=== PATIENT | male | born 1960 | race Native Hawaiian/Other Pacific Islander ===

== ENCOUNTER 2018-04-01 23:14 | Outpatient (CLI) | payer OTHER ==
[2018-04-01] MEDS ORDERED: ISOSORB DIN30 MG PO (23:55)
[2018-04-01] MEDS ORDERED: LIPITOR80 MG PO (23:56)
[2018-04-01] MEDS ORDERED: METF500T PO (23:57)
[2018-04-01] MEDS ORDERED: DOCU SOFT100 MG PO (23:57)
[2018-04-01] MEDS ORDERED: GLIM2TAB PO (23:58)
[2018-04-01] MEDS ORDERED: MICROZIDE12.5 MG PO (23:59)
[2018-04-01] MEDS ORDERED: NITROSTAT0.4 MG SL (23:59)
[2018-04-02] MEDS ORDERED: CLOP75TA2 PO
[2018-04-02] MEDS ORDERED: TAMS0.4C PO (00:01)
[2018-04-02] MEDS ORDERED: HEARTBURN150 MG PO (00:01)
[2018-04-02] MEDS ORDERED: HYDR25CA25 PO (00:02)
[2018-04-02] MEDS ORDERED: TOPAMAX50 MG PO (00:03)
[2018-04-02] MEDS ORDERED: ASPIRIN 81 LOW81 MG PO (00:03)
[2018-04-02] MEDS ORDERED: SYMBICORT1 AE1 INH (00:04)
[2018-04-02] MEDS ORDERED: PROAIR HFA INH (00:04)
== END 2018-04-01 23:27 | disposition short-term general hospital (02) ==
LOC: AMB 23:14
DX: J44.1 Chronic obstructive pulmonary disease with (acute) exacerbation (principal)
CPT/HCPCS: A0425; A0427

== ENCOUNTER 2018-04-01 23:44 | Emergency (ER) | payer OTHER ==
[~2018-04-01] VITALS: Ht 180.3 cm; Wt 127.0 kg
[2018-04-01] MEDS ORDERED: ISOSORB DIN30 MG PO (23:55)
[2018-04-01] MEDS ORDERED: LIPITOR80 MG PO (23:56)
[2018-04-01] MEDS ORDERED: DOCU SOFT100 MG PO (23:57)
[2018-04-01] MEDS ORDERED: METF500T PO (23:57)
[2018-04-01] MEDS ORDERED: GLIM2TAB PO (23:58)
[2018-04-01] MEDS ORDERED: MICROZIDE12.5 MG PO (23:59)
[2018-04-01] MEDS ORDERED: NITROSTAT0.4 MG SL (23:59)
[2018-04-02] MEDS ORDERED: CLOP75TA2 PO
[2018-04-02] MEDS ORDERED: HEARTBURN150 MG PO (00:01)
[2018-04-02] MEDS ORDERED: TAMS0.4C PO (00:01)
[2018-04-02] MEDS ORDERED: HYDR25CA25 PO (00:02)
[2018-04-02] MEDS ORDERED: TOPAMAX50 MG PO (00:03)
[2018-04-02] MEDS ORDERED: ASPIRIN 81 LOW81 MG PO (00:03)
[2018-04-02] MEDS ORDERED: SYMBICORT1 AE1 INH (00:04)
[2018-04-02] MEDS ORDERED: PROAIR HFA INH (00:04)
[2018-04-02 01:00] LABS: PLATELET COUNT 299 K/uL (142-355)
[2018-04-02 01:04] LABS: POTASSIUM 3.5 mmol/L (3.6-5.2); SODIUM 142 mmol/L (136-145)
[2018-04-02 02:49] VITALS: BP 123/76; TEMP 98.3
== END 2018-04-02 02:57 | disposition home or self-care (01) ==
LOC: ED 23:44
PROVIDERS: Emergency Medicine
DX: J44.9 Chronic obstructive pulmonary disease, unspecified (principal)
CPT/HCPCS: 80053; 82550; 82553; 84484; 85027; 93005; 94664; 94760; 96372; 99283; J0696

== ENCOUNTER 2018-05-01 13:00 | Emergency (ER) | payer OTHER ==
[~2018-05-01] VITALS: Ht 180.3 cm; Wt 122.5 kg
[~2018-05-01 13:00] MED LIST: ASPIRIN 81 LOW81 MG PO; CLOP75TA2 PO; DOCU SOFT100 MG PO; GLIM2TAB PO; HEARTBURN150 MG PO; HYDR25CA25 PO; ISOSORB DIN30 MG PO; LIPITOR80 MG PO; METF500T PO; MICROZIDE12.5 MG PO; NITROSTAT0.4 MG SL; PROAIR HFA INH; SYMBICORT1 AE1 INH; TAMS0.4C PO; TOPAMAX50 MG PO
[2018-05-01 14:14] LABS: PLATELET COUNT 130 K/uL (142-355)
[2018-05-01 14:26] LABS: POTASSIUM 4.2 mmol/L (3.6-5.2)
[2018-05-01 15:05] VITALS: BP 117/80; TEMP 97.7
== END 2018-05-01 15:09 | disposition home or self-care (01) ==
LOC: ED 13:00
PROVIDERS: Emergency Medicine
DX: J44.9 Chronic obstructive pulmonary disease, unspecified (principal)
CPT/HCPCS: 80053; 85027; 93005; 99283

== ENCOUNTER 2018-05-16 22:36 | Emergency (ER) | payer OTHER ==
[~2018-05-16] VITALS: Ht 180.3 cm; Wt 120.7 kg
[2018-05-16 23:28] LABS: PLATELET COUNT 272 K/uL (142-355)
[2018-05-17 00:16] VITALS: BP 129/82; TEMP 97.7
== END 2018-05-17 00:18 | disposition home or self-care (01) ==
LOC: ED 22:36
PROVIDERS: Emergency Medicine
DX: J40 Bronchitis, not specified as acute or chronic (principal); R00.0 Tachycardia, unspecified
CPT/HCPCS: 36415; 80053; 82553; 84484; 85027; 87502; 87651; 93005; 94664; 99283